=== PATIENT | male | born 1975 | race African-American/Black ===

== ENCOUNTER 2018-03-16 12:20 | Outpatient (CLI) | payer OTHER ==
--- NOTE | 2018-03-16 19:32 | RAD ---
CHEST TWO VIEWS: 03/16/2018 FINDINGS: The heart is normal in size, and the mediastinum shows no widening or shift. There are linear horizo ntal infiltrates in the lung bases bilaterally, a little more so on the right than the left. This is presumably subsegmental atelectasis, though scarring could look similar. Atelectasis can sometimes be a secondary finding in occult rib injuries; however, the current films do not allow diagnosis of a ny fracture. There is no pneumothorax or pleural effusion. IMPRESSION: Linear basilar streaking, atelectasis versus scar. If concern for rib fractures is high, dedicated r ib films or CT might be needed. POS: HOME
== END 2018-03-16 12:21 | disposition home or self-care (01) ==
LOC: BURRAD 12:20
PROVIDERS: ATTEND Physician Assistant
DX: R07.89 Other chest pain (principal); R91.8 Other nonspecific abnormal finding of lung field
CPT/HCPCS: 71046